=== PATIENT | male | born 1985 | race Caucasian/White ===

== ENCOUNTER 2017-05-22 16:11 | Emergency (ER) | payer OTHER ==
[2017-05-22 16:25] VITALS: TEMP 98.4; BMI 35.4
--- NOTE | 2017-05-22 16:25 | PDOC ---
Rapid Medical Evaluation Time Seen by Provider: 05/22/17 16:16 Medical Evaluation: Allergies Allergy/AdvReac Type Severity Reaction Status Date / Time amoxicillin [Amoxicillin] Allergy Verified 10/11/13 11:21 ibuprofen [From Motrin] Allergy SOB Verified 10/11/13 11:21 SWELLING naproxen [From Naprosyn] Allergy SWELLING Verified 10/11/13 11:21 SOB Penicillins Allergy CANT BREATH Verified 10/11/13 11:21 BEE Allergy SWELLING Uncoded 10/11/13 11:21 CANT BREATH 05/22/17 16:18 I have performed a brief in-person evaluation of this patient. The patient presents with a chief complaint of: Chest pain. H/o Lemieres's disease Pertinent physical exam findings: Afebile w/ HR 93 and BP 177/115 I have ordered the following:EKG, proceed to FT for further eval The patient will proceed to the ED for further evaluation.
[2017-05-22] MEDS ORDERED: ACETAMINOPHEN 500 MG TABLET (FP) PO ONE (18:41)
--- NOTE | 2017-05-22 18:42 | PDOC ---
History of Present Illness - General Chief Complaint: Respiratory Stated Complaint: PINK EYE Time Seen by Provider: 05/22/17 16:16 History Source: Patient Exam Limitations: No Limitations - History of Present Illness Initial Comments: 05/22/17 20:01 31M with pmh of HTN and questionable remote hx as per patient of pleural effusion and "blot clot in the neck" present with flu-like syndrome and 10/10 right sided back pain radiating down his arm. Pain in increased upon movement of arm and shoulder. No headaches, sob, abdominal pain. Took his own temperature this am and noted it was 103. Repeated after taking advil and found it to be 100.3. Son presently has conjunctivitis. Patient has hx of HTN, was on hydrochlorothiazide before pcp took him off of it. Patient was normotensive for a year without it. Recent weight gain of 30- 40lbs due to increase in sedentary life. 05/22/17 21:52 Past History - Past Medical History Allergies/Adverse Reactions: Allergies Allergy/AdvReac Type Severity Reaction Status Date / Time amoxicillin [Amoxicillin] Allergy Verified 05/22/17 16:25 ibuprofen [From Motrin] Allergy SOB Verified 05/22/17 16:25 SWELLING naproxen [From Naprosyn] Allergy SWELLING Verified 05/22/17 16:25 SOB Penicillins Allergy CANT BREATH Verified 05/22/17 16:25 BEE Allergy SWELLING Uncoded 05/22/17 16:25 CANT BREATH Home Medications: Ambulatory Orders No Home Medications 0 dose .ROUTE UTDICT 03/19/13 Hydrochlorothiazide [Hctz -] 12.5 mg PO DAILY #30 cap 05/22/17 Methocarbamol [Robaxin -] 500 mg PO TID #42 tablet 05/22/17 COPD: No Other medical history: LEMIERRES - Surgical History Appendectomy: Yes - Suicide/Smoking/Psychosocial Hx Smoking Status: Yes Smoking History: Former smoker Have you smoked in the past 12 months: Yes Number of Cigarettes Smoked Daily: 20 If you are a former smoker, when did you quit?: 2 MO Information on smoking cessation initiated: No Hx Alcohol Use: No Drug/Substance Use Hx: No Substance Use Type: None Respiratory Specific PMHX - Complaint Specific PMHX Bronchitis: Yes Review of Systems - Review of Systems Able to Perform ROS?: Yes Is the patient limited Azeri proficient: No Constitutional: Yes: Fever. No: Diaphoresis HEENTM: Yes: Nose Congestion Respiratory: Yes: Cough. No: Shortness of Breath, Wheezing, Productive cough, Hemoptysis Cardiac (ROS): No: Symptoms Reported ABD/GI: No: Symptoms Reported : No: Symptoms Reported Musculoskeletal: Yes: Back Pain Integumentary: No: Symptoms Reported Neurological: No: Symptoms reported *Physical Exam - Vital Signs Last Vital Signs Temp Pulse Resp BP Pulse Ox 98.4 F 93 H 20 177/115 99 05/22/17 16:20 05/22/17 16:20 05/22/17 16:20 05/22/17 16:20 05/22/17 16:20 - Physical Exam General Appearance: Yes: Nourished, Appropriately Dressed, Mild Distress HEENT: positive: EOMI, RASHAD, Normal ENT Inspection Neck: positive: Trachea midline. negative: Tender Respiratory/Chest: positive: Lungs Clear, Normal Breath Sounds. negative: Chest Tender, Respiratory Distress Cardiovascular: positive: Regular Rhythm, Regular Rate, S1, S2. negative: Murmur Gastrointestinal/Abdominal: positive: Normal Bowel Sounds. negative: Tender Musculoskeletal: positive: Other (Back pain reproducible with palpation over right latissimus dorsi down arm) Neurologic: positive: Fully Oriented, Alert, Normal Mood/Affect, Normal Response , Motor Strength 5/5 ED Treatment Course - LABORATORY CBC & Chemistry Diagram: 05/22/17 19:08 05/22/17 19:08 Medical Decision Making - Medical Decision Making 05/22/17 20:07 31M with flu-like symdrome and MSK back pain. 05/22/17 21:55 Labs and chest x ray ordered, all negative. . Given motrin for pain. No effect, given Robaxin. Blood pressure elevated in the 150's/100. Given 10mg of hydralazine x2 will reassess. 05/22/17 22:01 Will D/c patient on ambulatory order of hydrochlorothiazide and robaxin. *DC/Admit/Observation/Transfer Diagnosis at time of Disposition: Strain of latissimus dorsi muscle, Hypertension - Prescriptions Prescriptions: Hydrochlorothiazide [Hctz -] 12.5 mg PO DAILY #30 cap Methocarbamol [Robaxin -] 500 mg PO TID #42 tablet
[2017-05-22] MEDS ORDERED: ACETAMINOPHEN 325 MG TABLET (FP) ONE (19:10)
[2017-05-22 19:15] LABS: BASOPHIL 0.6 % (0-2.0); EOSINOPHIL 2.6 % (0-4.5); MCH 28.8 pg (25.7-33.7); MCHC 34.2 g/dl (32.0-35.9); MEAN CELL VOLUME 84.1 fl (80-96); MEAN PLT VOLUME 8.1 fl (7.5-11.1); NEUTROPHILS 64.7 % (42.8-82.8); PLATELET COUNT 194 K/MM3 (134-434); WHITE BLOOD COUNT 9.7 K/mm3 (4.0-10.0)
--- NOTE | 2017-05-22 19:33 | PDOC ---
Attending Attestation - HPI HPI: 05/22/17 19:54 The patient is a 31 year old male with a remote significant PMH of blood clots in neck and fluid in lungs who presents to the emergency department with right sided back pain beginning approximately 1 week ago. The patient reports the back pain to be muscular in nature, 10/10 in severity. He also reports a fever ( T. max 103F this morning) and associated flu-like symptoms. The patient reports taking Advil earlier today to some relief. The patient endorses having a sick contact within the past week. The patient The patient denies a PMH of hypertension but presents moderately hypertensive upon presentation. The patient denies trauma. The patient denies chest pain, shortness of breath, headache and dizziness. Denies fever, chills, nausea, vomit, diarrhea and constipation. Denies dysuria, frequency, urgency and hematuria. <Samson Snow - Last Filed: 05/22/17 19:54> - Resident Resident Name: Fransisco Montero - ED Attending Attestation I have performed the following: I have examined & evaluated the patient, The case was reviewed & discussed with the resident, I agree w/resident's findings & plan, Exceptions are as noted - Physicial Exam PE: 05/22/17 19:34 *Physical Exam General Appearance: Yes: Appropriately Dressed. No: Apparent Distress, Intoxicated HEENT: positive: EOMI, RASHAD, Normal ENT Inspection, Normal Voice, TMs Normal, Pharynx Normal. negative: Pale Conjunctivae, Photophobia, Scleral Icterus (R), Scleral Icterus (L) Neck: positive: Trachea midline, Normal Thyroid, Supple. negative: Tender, Rigid, Carotid bruit, Stridor, Lymphadenopathy (R), Lymphadenopathy (L), Thyromegaly Respiratory/Chest: positive: Lungs Clear, Normal Breath Sounds. negative: Chest Tender, Respiratory Distress, Accessory Muscle Use, Labored Respiration, RES, Crackles, Rales, Rhonchi, Stridor, Wheezing, Dullness Cardiovascular: positive: Regular Rhythm, Regular Rate, S1, S2. negative: Edema , JVD, Murmur, Bradycardia, Tachycardia Vascular Pulses: Dorsalis-Pedis (R): 2+, Doralis-Pedis (L): 2+ Gastrointestinal/Abdominal: positive: Normal Bowel Sounds, Flat, Soft. negative : Tender, Organomegaly, Pulsatile Mass, Increased Bowel Sounds, Decreased BS, Distended, Guarding, Rebound, Hernia, Hepatomegaly, Spleenomegaly Lymphatic: negative: Adenopathy, Tenderness Musculoskeletal: positive: Normal Inspection. bilateral upper thoracic muscle tenderness negative: CVA Tenderness, Decreased Range of Motion Extremity: positive: Normal Capillary Refill, Normal Inspection, Normal Range of Motion, Pelvis Stable. negative: Tender, Pedal Edema, Swelling, Erythema Integumentary: positive: Normal Color, Dry, Warm. negative: Cyanotic, Erythema , Jaundice, Rash Neurologic: positive: echocardiographer II-XII NML intact, Fully Oriented, Alert, Normal Mood/ Affect, Motor Strength 5/5. negative: EOM Palsy, Facial Droop, Sensory Deficit - Medical Decision Making 05/23/17 19:14 PT feels better. BP improved. Pt advised to follow up with internal medicine.. Pt advised to start his HCTZ for BP control <Luis Rawls - Last Filed: 05/23/17 19:15>
[2017-05-22] MEDS ORDERED: hydrALAZINE HCL 20 MG/ML VIAL IVPUSH ONE ×2 (20:00→21:26)
[2017-05-22 20:02] LABS: ALBUMIN 3.9 g/dl (3.4-5.0); ALK PHOS 79 U/L (45-117); ANION GAP 5 (8-16); BILIRUBIN,TOTAL 0.3 mg/dL (0.2-1.0); CALCIUM 8.7 mg/dL (8.5-10.1); CO2 28 mmol/L (21-32); CREATININE 1.1 mg/dL (0.7-1.3); GLUCOSE,RANDOM 83 mg/dL (74-106); SGPT/ALT 29 U/L (12-78)
[2017-05-22 20:06] LABS: SGOT/AST 16 U/L (15-37)
[2017-05-22] MEDS ORDERED: hydrALAZINE HCL 20 MG/ML VIAL ONE ×2 (20:40→21:30)
[2017-05-22] MEDS ORDERED: METHOCARBAMOL 500 MG TABLET PO ONE (21:10)
[2017-05-22 21:19] LABS: URINE APPEARANCE SLCLOUDY; URINE BILIRUBIN NEGATIVE (NEGATIVE); URINE BLOOD 1+ (NEGATIVE); URINE COLOR YELLOW; URINE GLUCOSE (UA) NEGATIVE (NEGATIVE); URINE KETONE NEGATIVE (NEGATIVE); URINE NITRITE NEGATIVE (NEGATIVE); URINE PROTEIN NEGATIVE (NEGATIVE); URINE UROBILINOGEN NEGATIVE mg/dL (0.2-1.0)
[2017-05-22] MEDS ORDERED: METHOCARBAMOL 500 MG TABLET ONE ×2 (21:30→21:31)
[2017-05-22] MEDS ORDERED: LORazepam 0.5 MG TABLET PO ONE (22:11)
[2017-05-22] MEDS ORDERED: LORazepam 0.5 MG TABLET ONE (22:15)
[2017-05-22 22:16] LABS: URINE MUCUS FEW; URINE RBC 36 /hpf (0-3); URINE WBC 1 /hpf (3-5)
[2017-05-22 22:25] LABS: URINE LEUK ESTERASE Negative (NEGATIVE)
[2017-05-22 23:00] VITALS: BP 156/97; PULSE 86
--- NOTE | 2017-05-23 17:03 | EKG ---
Test Reason : Blood Pressure : / mmHG Vent. Rate : 084 BPM Atrial Rate : 084 BPM P-R Int : 178 ms QRS Dur : 086 ms QT Int : 364 ms P-R-T Axes : 040 043 034 degrees QTc Int : 430 ms NORMAL SINUS RHYTHM NORMAL ECG WHEN COMPARED WITH ECG OF 11-OCT-2013 11:37, NO SIGNIFICANT CHANGE WAS FOUND Confirmed by GENET REDDING MD ([id number]) on 05/23/2017 5:03:28 PM Referred By: Confirmed By:GENET REDDING MD
== END 2017-05-22 22:20 | disposition home or self-care (01) ==
LOC: JER 16:11
PROC: 3E033GC Introduction of Other Therapeutic Substance into Peripheral Vein, Percutaneous Approach (ICD-10-PCS; principal; 2017-05-22)
DX: S29.012A Strain of muscle and tendon of back wall of thorax, initial encounter (principal); X58.XXXA Exposure to other specified factors, initial encounter; Y93.9 Activity, unspecified; Y92.9 Unspecified place or not applicable; I10 Essential (primary) hypertension
CPT/HCPCS: 36415; 71020-TC; 80053; 81003; 81015; 85025; 93005; 93010; 99283-25